=== PATIENT | male | born 1985 | race Caucasian/White ===

== ENCOUNTER 2021-01-14 02:56 | Emergency (ER) | payer OTHER ==
[~2021-01-14] VITALS: Ht 190.5 cm; Wt 89.9 kg
--- NOTE | 2021-01-14 03:08 | NUR ---
Patient BIBA for OD. Per EMS, patient told them he usually takes 0.5mg Xanax but jayjay took 4mg because he was having a panic attack. Patient denies SI/SA. EMS also found a bag on scene containing an unknown white substance. Patient denies drug use. Patient is alert painful stimuli but does not open his eyes. AAOx4. Respirations even and unlabored.
[2021-01-14 03:50] LABS: BASOPHILS % (AUTO) 1 % (0-1); EOSINOPHILS % (AUTO) 1 % (1-7); LYMPHOCYTES % (AUTO) 20 % (22-44); MEAN CORPUSCULAR HEMOGLOBIN 29.2 pg (27.5-34.5); MEAN CORPUSCULAR HGB CONC 35.1 g/dL (33.2-36.2); MEAN PLATELET VOLUME 7.5 fL (7.4-10.4); MONOCYTES % (AUTO) 5 % (2-9); NEUTROPHILS % (AUTO) 73 % (42-75); PLATELET COUNT 223 x10^3/uL (130-400); RED BLOOD COUNT 5.12 x10^6/uL (4.38-5.82); RED CELL DISTRIBUTION WIDTH 13.9 % (9.4-14.8)
[2021-01-14 03:56] LABS: MD NO
[2021-01-14 03:59] LABS: ALANINE AMINOTRANSFERASE 26 U/L (12-78); ALBUMIN 3.4 g/dL (3.4-5.0); ANION GAP 6 mmol/L (5-15); CALCIUM 8.3 mg/dL (8.5-10.1); CHLORIDE 109 mmol/L (98-107); CREATININE 0.94 mg/dL (0.7-1.3)
[2021-01-14 04:00] LABS: SALICYLATE LEVEL < 1.7 mg/dL (2.8-20.0)
[2021-01-14 04:01] LABS: ALKALINE PHOSPHATASE 75 U/L (45-117); BILIRUBIN,TOTAL 0.6 mg/dL (0.2-1.0); TOTAL PROTEIN 6.6 g/dL (6.4-8.2)
--- NOTE | 2021-01-14 06:13 | NUR ---
pt resting in bed. pt requested water . pt drank 2 cups without difficulty. pt on monitor with vss. pt denied need for bathroom and denied ua at this time.
[2021-01-14 07:00] VITALS: BP 131/86
--- NOTE | 2021-01-14 07:02 | NUR ---
Patient given discharge instructions and they have confirmed that they understand the instructions. Patient ambulatory with steady gait.
== END 2021-01-14 07:04 | disposition home or self-care (01) ==
LOC: ED 06:30
DX: G92 Toxic encephalopathy (principal); T42.4X1A Poisoning by benzodiazepines, accidental (unintentional), initial encounter; R41.82 Altered mental status, unspecified; R94.31 Abnormal electrocardiogram [ECG] [EKG]; F41.9 Anxiety disorder, unspecified; Y92.89 Other specified places as the place of occurrence of the external cause
CPT/HCPCS: 36415; 80053; 80299; 80320; 80329; 85025; 93005; 99285; G0480